=== PATIENT | female | born 1955 ===

== ENCOUNTER 2018-04-20 17:44 | Observation (INO) | payer MEDICARE, OTHER ==
--- NOTE | 2018-04-20 18:51 | ED ---
HPI Chest Pain - HPI Summary HPI Summary: This is [facility] documenting for attending Shashank Zuniga MD. Pt is a 62 y/o F c/o CP onset ~40 mins ago. Pain is described as pressure and rated a 1/10, per triage. Assoc Sx: SOB, lightheaded, dizzy, shaking, nausea. Pt was administered a Nitro and 3 ASA en route to ED which alleviated Sx. She reports she is feeling much better now. PMHx: HLD, denies DM, HTN. SHx: 1ppd for 40 years. - History of Current Complaint Chief Complaint: EDChestPainROMI Time Seen by Provider: 04/20/18 17:49 Hx Obtained From: Patient Onset/Duration: Started Minutes Ago - ~40 mins, Atraumatic, Resolved Timing: Constant Current Severity: Mild Pain Intensity: 1 Pain Scale Used: 0-10 Numeric Chest Pain Location: Mid Sternal Character: Pressure/Squeezing Alleviating Factor(s): Medication Associated Signs and Symptoms: Positive: Chest Pain, Shortness of Breath, Nausea , Other: - POS: lightheaded, dizzy, shaking. - Allergy/Home Medications Allergies/Adverse Reactions: Allergies Allergy/AdvReac Type Severity Reaction Status Date / Time Sulfa (Sulfonamide Allergy Hives Verified 04/20/18 17:59 Antibiotics) PMH/Surg Hx/FS Hx/Imm Hx Endocrine/Hematology History: Denies: Hx Diabetes Cardiovascular History: Denies: Hx Coronary Artery Disease, Hx Hypertension Infectious Disease History: No Infectious Disease History: Denies: Traveled Outside the [place] in Last 30 Days - Family History Known Family History: Positive: Cardiac Disease, Hypertension, Diabetes - Social History Occupation: Retired Lives: With Family Hx Tobacco Use: Yes Review of Systems Negative: Fever Positive: Chest Pain - pressure Positive: Shortness Of Breath Positive: Nausea Neurological: Other - POS: Light headed, dizzy All Other Systems Reviewed And Are Negative: Yes Physical Exam - Summary Physical Exam Summary: GENERAL: Patient is a well developed and nourished M who is lying comfortable in the stretcher. Patient is not in any acute respiratory distress. HEAD AND FACE: Normocephalic EYES: PERRLA, EOMI x 2. EARS: Hearing grossly intact. MOUTH: Oropharynx within normal limits. NECK: Supple, trachea is midline, no adenopathy, no JVD, no carotid bruit. CHEST: Symmetric, no tenderness at palpation LUNGS: Clear to auscultation bilaterally. No wheezing or crackles. CVS: Regular rate and rhythm, S1 and S2 present, no murmurs or gallops appreciated. ABDOMEN: Soft, non-tender. Bowel sounds are normal. No abdominal abnormal pulsations. EXTREMITIES: Full ROM in all major joints, no edema, no cyanosis or clubbing. NEURO: Alert and oriented x 3. No acute neurological deficits. Speech is normal and follows commands. SKIN: Dry and warm Triage Information Reviewed: Yes Vital Signs On Initial Exam: Initial Vitals Temp Pulse Resp BP Pulse Ox 97.4 F 65 17 105/54 95 04/20/18 17:57 04/20/18 17:57 04/20/18 17:57 04/20/18 17:57 04/20/18 17:57 Vital Signs Reviewed: Yes Diagnostics - Vital Signs Vital Signs Temp Pulse Resp BP Pulse Ox 04/20/18 18:00 65 17 95 04/20/18 17:57 97.4 F 65 18 105/54 94 - Laboratory Result Diagrams: 04/20/18 19:01 04/20/18 19:01 Lab Statement: Any lab studies that have been ordered have been reviewed, and results considered in the medical decision making process. - Radiology CXR Xray Interpretation: No Acute Changes - IMPRESSION: No radiographic evidence for acute cardiopulmonary abnormality on this portable chest x-ray. Radiology Interpretation Completed By: Radiologist - Report has been reviewed by provider. - EKG 1807 Cardiac Rate: NL - 61 bpm EKG Rhythm: Sinus Rhythm ST Segment: Non-Specific EKG Interpretation: Unspecified T-wave changes Chest Pain Course/Dx - Course Course Of Treatment: 62-year-old female who presents to the emergency room with chest pain. Patient reports that she was given nitroglycerin and aspirin by EMS which resolved her chest pain. Her workup including her first troponin is within normal limit. Patient will be admitted for ACS evaluation. Case discussed with hospitalist. Patient stable upon admission and remains chest pain-free at this time. - Diagnoses Provider Diagnoses: Chest pain Discharge - Sign-Out/Discharge Documenting (check all that apply): Patient Departure - Discharge Plan Condition: Stable Disposition: ADMITTED TO [facility] Referrals: Rg BLOCK,Kwaku Edmondson [Primary Care Provider] - - Billing Disposition and Condition Condition: STABLE Disposition: Admitted to [facility]
[2018-04-20 19:11] LABS: ABS Basophils 0.1 10^3/ul (0-0.2); ABS Eosinophils 0.2 10^3/ul (0-0.6); ABS Lymphocytes 2.3 10^3/ul (1.0-4.8); ABS Monocytes 0.6 10^3/ul (0-0.8); ABS Neutrophils 5.4 10^3/ul (1.5-7.7); ABS Nucleated RBC 0 10^3/ul; Eosinophil % 1.8 % (0-6); Hematocrit 43 % (35-47); Hemoglobin 14.7 g/dl (12.0-16.0); Lymphocyte % 26.9 % (25-47); Mean Corpuscular HGB Conc 35 g/dl (31-36); Mean Corpuscular Hemoglobin 31 pg (27-31); Mean Corpuscular Volume 90 fL (80-97); Mean Platelet Volume 7.7 um3 (7.4-10.4); Nucleated Red Blood Cells % 0; Platelet Count 225 10^3/ul (150-450); Red Blood Count 4.72 10^6/ul (4.00-5.40); Red Cell Distribution Width 15 % (10.5-15); White Blood Count 8.5 10^3/ul (3.5-10.8)
[2018-04-20 19:27] LABS: INR 1.01 (0.77-1.02)
[2018-04-20 19:31] LABS: EGFR Non-African American 64.5 (>60)
--- NOTE | 2018-04-20 19:48 | RAD ---
INDICATION: Chest pain COMPARISON: Chest x-ray dated March 03, 2007 TECHNIQUE: Single AP portable view of the chest was obtained. FINDINGS: Image quality is compromised due to the relative inferiority of a portable chest x-ray. The heart and mediastinum exhibit normal size and contour. There is mild calcification at the arch of the aorta. The lungs are grossly clear. There is no evidence of a large pleural effusion. Visualized bones are normal for the patient's age. IMPRESSION: No radiographic evidence for acute cardiopulmonary abnormality on this portable chest x-ray.
[2018-04-20] MEDS ORDERED: Acetaminophen TAB* 325 MG PO PRN (20:17)
[2018-04-20] MEDS ORDERED: Ondansetron INJ* 2 MG/ML VIAL IV PRN (20:17)
[2018-04-21] MEDS: Heparin VIAL(*) 5000 UNITS/ML VIAL (FIVE THOUSAND) SUBCUT SCH ×3 (01:22→14:44)
[2018-04-21] MEDS: Nicotine PATCH 21 MG/24 HR* PATCH TRANSDERM SCH ×2 (01:22→09:48)
--- NOTE | 2018-04-21 02:20 | HP ---
CC: BRANT Swanson * HISTORY AND PHYSICAL: DATE OF ADMISSION: 04/20/18 PRIMARY CARE PROVIDER: BRANT Swanson ATTENDING PHYSICIAN WHILE IN THE HOSPITAL: Bella Erickson MD * (report dictated by Jeff Banegas NP) CHIEF COMPLAINT: Chest pain. HISTORY OF PRESENT ILLNESS: Ms. Walsh is a 62-year-old female patient. She has a history of colon cancer. She also is a heavy smoker. She comes in today , she states she was sitting down watching her soap operas and she started feeling short of breath and feeling nauseated and had some chest pressure. The pressure was nonexertional, lasted about an hour. Her came and talked to her and they called 911. By the time she was fdc to the ambulance, she tripped, she responded to 2 nitro, was feeling better, the pain had gone away. She denied having any radiation to her neck or down her arm. She denies having becoming diaphoretic. There has been no recent surgeries, no recent leg swelling, no recent trips or travel and she has not had any recent cough, fevers , or chills. She states that she can walk up a flight of stairs, she does get short of breath, but she does not usually get chest pressure or heaviness. She was concerned because of the discomfort, her brought her in, she was evaluated in the ED. Because of this, and she has a significant family history , the fact that she is a heavy smoker, we were asked to evaluate for admission. PAST MEDICAL HISTORY: Significant for: 1. Colon cancer. 2. Tobacco abuse. PAST SURGICAL HISTORY: The patient had a colon resection. She had a heart catheterization 10 years ago. MEDICATIONS: Home meds were denied by the patient. ALLERGIES TO MEDICATIONS: Include SULFA DRUGS. FAMILY HISTORY: Mother had a history of CVA. Father had a history of an GA at 51. Brother had an GA in his 50s and her sister had an GA when she was in her 60s. SOCIAL HISTORY: The patient is a pack a day smoker for x40 years. She rarely drinks alcohol. Surrogate decision maker is her . REVIEW OF SYSTEMS: There is no documented fever. She denies having any significant weight change. There is no double vision. There is no ear discharge. There was no rhinorrhea. No sore throat. No thyroid enlargement. She did admit to chest pressure from [facility]. There was no abdominal pain. There was associated nausea with this chest discomfort that is now resolved. No vomiting. No abdominal pain. No dysuria. No frequency. No seizure. No loss of conscious. No pruritus and no skin ulcerations. Review of 14 systems was completed, all others negative. PHYSICAL EXAMINATION GENERAL: At this time, Ms. Walsh is a 62-year-old female patient. She is sitting in the ED stretcher; she does not appear to be in any acute distress. VITAL SIGNS: Blood pressure 113/70, pulse is 65, respirations of 18, O2 sat was desaturation at 95% on room air. HEENT: Head: Atraumatic, normocephalic. Eyes: EOMs intact. Sclerae anicteric and not pale. Throat: Oral mucosa appears to be moist. No oropharyngeal erythema. NECK: Supple. LUNGS: Clear to auscultation bilaterally. No wheezes, rales, or rhonchi. HEART: Sounds S1, S2. Regular rate and rhythm. No murmurs, rubs, or gallops. ABDOMEN: Soft. It was flat, nontender. Bowel sounds were present. EXTREMITIES: Pulses were 2+ throughout and she is able to move all 4 extremities with 5/5 strength. NEUROLOGICAL: The patient is awake. She is alert. She is oriented x3. Her speech is clear. Tongue is midline. Steak Tenderizer Machine were equal. No gross focal deficits. SKIN: Intact. DIAGNOSTIC STUDIES/LAB DATA: Labs, WBC 8.5, RBC 4.72, hemoglobin 14.7, hematocrit of 43, platelet count 25. The INR was 1.01. PTT is 31.9. Sodium was 140, potassium was 3.8, chloride of 105, bicarb 26, BUN 14, creatinine of 0.89, glucose 85, lactate 0.7, calcium 9.4, total bili is 0.8, AST 14, ALT _, alk phos 52, troponin 0.00, BNP 59, albumin of 4.1. She did have a chest x-ray obtained today, impression: No radiographic evidence for acute cardiopulmonary disease. She had an EKG obtained today at 1800, which shows a normal sinus rhythm. She did have inversions in aVL and aVR. She did have J-point elevation at V2. There is upsloping ST segment in lead II, III, and aVF. Repeat EKG, those changes are similar. She still have the inverted T wave in the aVR and aVL and J-point elevation in V2, it appears to be similar. Old medical records were reviewed. ASSESSMENT AND PLAN: Ms. Walsh is a 62-year-old female patient coming into the ED today with complaints of chest discomfort. She will be admitted under observation status for: 1. Chest pain. The patient has significant risk factors for acute coronary artery syndrome. My plan would be to go ahead and continue with baby aspirin, serial EKGs. I am going to get an EKG in the morning, 2 more troponins. I will get a stress test in the morning. Chemical stress test. I have offered smoking cessation for the patient and we will continue to follow. 2. Colon cancer. Follow with her PCP. 3. Tobacco abuse. I have ordered nicotine patch. I have offered smoking cessation and counseling. 4. DVT prophylaxis: Heparin subcu has been ordered. 5. Code status: Full code. 6. Fluids, electrolytes, and nutrition: She can have a heart healthy diet and then she will be n.p.o. after midnight. TIME SPENT: Time spent on admission, 50 minutes, greater than half the time was spent [id number] with the patient obtaining my history and physical, other half of the time was spent going over the plan of care with the patient and implementing the plan of care. I did discuss the plan of care with my attending, Dr. Erickson, she is in agreement. JEFF BANEGAS, BHAVIK [id number]/[facility] #: [id number] SHERON
[2018-04-21 06:31] LABS: ABS Basophils 0.1 10^3/ul (0-0.2); ABS Eosinophils 0.3 10^3/ul (0-0.6); ABS Lymphocytes 2.8 10^3/ul (1.0-4.8); ABS Monocytes 0.6 10^3/ul (0-0.8); ABS Neutrophils 3.6 10^3/ul (1.5-7.7); ABS Nucleated RBC 0 10^3/ul; Eosinophil % 4.1 % (0-6); Hematocrit 41 % (35-47); Hemoglobin 14.1 g/dl (12.0-16.0); Lymphocyte % 37.7 % (25-47); Mean Corpuscular HGB Conc 34 g/dl (31-36); Mean Corpuscular Hemoglobin 31 pg (27-31); Mean Corpuscular Volume 91 fL (80-97); Nucleated Red Blood Cells % 0.2; Platelet Count 220 10^3/ul (150-450); Red Blood Count 4.56 10^6/ul (4.00-5.40); Red Cell Distribution Width 15 % (10.5-15); White Blood Count 7.3 10^3/ul (3.5-10.8)
[2018-04-21 06:35] LABS: INR 0.94 (0.77-1.02)
[2018-04-21 06:55] LABS: EGFR Non-African American 69.9 (>60)
[2018-04-21 08:42] VITALS: BP 115/51
[2018-04-21] MEDS ORDERED: Aspirin 81 mg CHEW TAB* 81 MG TAB.CHEW PO SCH (09:00)
[2018-04-21] MEDS ORDERED: Regadenoson* 0.4 MG/5 ML SYRINGE ONE (11:51)
--- NOTE | 2018-04-21 12:41 | RAD ---
HISTORY: chest pain COMPARISONS: None TECHNIQUE: A 1 day stress/rest myocardial perfusion study was performed, with pharmacologic stress. The stress portion was monitored by Dr. Horta. Gated SPECT imaging was performed, with CT-based attenuation correction DOSE: Stress: Technetium 99m tetrofosmin, 25.99 millicuries, injected at 11:25 AM on April 21, 2018 Rest: Technetium 99m tetrofosmin, 10.2 millicuries, injected at 6:50 AM on April 21, 2018 Pharmacologic agent: Lexiscan FINDINGS: CARDIAC MONITORING: EKG criteria ischemia with stress. EF: 85% TID: 0.99 MOTION: Normal motion, with normal wall thickening. PERFUSION: There are no fixed or reversible perfusion defects. OTHER: None IMPRESSION: NO FIXED OR REVERSIBLE PERFUSION DEFECTS ASSESSMENT: LOW RISK. Based on imaging criteria from ACC/AHA 2002. Guideline Update for the Management of Patient's with Chronic Stable Angina, table 23. Noninvasive Risk Stratification.
[2018-04-21] MEDS ORDERED: Nicotine Patch Removal NOTE PATCH OFF SCH (21:00)
--- NOTE | 2018-04-22 03:50 | DS ---
CC: BRANT Swanson * DISCHARGE SUMMARY: DATE OF ADMISSION: 04/20/18 DATE OF DISCHARGE: 04/21/18 PRIMARY CARE PROVIDER: BRANT Swanson MY ATTENDING PHYSICIAN WHILE IN THE HOSPITAL: Dr. Molina * (report dictated by Jeff Banegas NP) DISCHARGE DIAGNOSES: Include: 1. Hyperlipidemia. 2. Chest pain. SECONDARY DIAGNOSES: Include: 1. Tobacco abuse. 2. Anxiety. DISCHARGE MEDICATIONS: Includes new medication: 1. Lipitor 10 mg p.o. daily. STATUS DURING HOSPITALIZATION: Observation. HISTORY OF PRESENT ILLNESS AND HOSPITAL COURSE: I refer you to my H and P dictated yesterday. In short, Ms. Walsh is a 62-year-old female that came into the ED with complaints of chest discomfort with significant risk factors. She is a smoker continuing to smoke and she does have a family history and came in with chest discomfort that was concerning for possible acute coronary artery disease. She was brought in, she was ruled out with 3 negative troponins. She has serial EKGs, which were negative. She had a negative D-dimer. Lipid panel was checked and her LDL was 158, her A1c was 5.6. She underwent a stress testing today and she had done well with this. She had no more episodes of chest pain and certainly she could be safely discharged. She does have a ASCVD risk score of 7.1%, so it was felt that at this point she should go on a statin. In addition to this, lifestyle modifications for hyperlipidemia and close followup with primary. Because of this, I am starting her on 10 mg of Lipitor a day. I did discuss the side effects of this medication since she is willing to take them. I also discussed with her the importance of smoking cessation. I offered counseling and explained to her the importance of quitting. She again was instructed to follow up with her primary. She remained stable during the hospitalization and she is going to be discharged. PHYSICAL EXAMINATION ON DISCHARGE: Blood pressure 115/51, pulse 57, respirations 16, O2 sat 96%, temperature 98.1. General: At this time, Ms. Walsh is a 62-year- old female patient. She appears to be well-nourished, well- developed. HEENT: Head is atraumatic, normocephalic. Eyes: EOMs intact. Sclerae are anicteric, not pale. Neck: Supple. Throat: Oral mucosa appears to be dry. No oropharyngeal erythema. Heart sounds S1, S2, regular rate and rhythm. No murmurs, rubs, or gallops. Lungs: Clear to auscultation bilaterally. No wheezes, rales, or rhonchi. Abdomen: Soft, flat, nontender. Bowel sounds are present. Extremities: Pulses are 2+ throughout. She had no peripheral edema. Neurologically, she is awake, alert, and oriented x3. Skin: Grossly intact. LABORATORY DATA/DIAGNOSTIC STUDIES: Labs on discharge, WBC 7.3, RBC of 4.56, hemoglobin of 14.1, hematocrit of 41, platelet count of 220. The INR was 0.94. Sodium 141, potassium of 4, chloride 108, bicarb 26, BUN 20, creatinine of 0.83 , glucose of 79. A1c 5.6. Serial troponins were 0. Her LDL was 158, cholesterol 217, HDL 47. She had a stress test done today, which showed no fixed or reversible perfusion defects. She had an EKG obtained today, which showed there is artifact , but it does show normal sinus rhythm, poor R wave progression, no significant change from previous EKG, there was sinus rhythm at rate of 60. She had a chest x-ray in the emergency department prior to admission, which showed no radiographic evidence for acute cardiopulmonary abnormality. STATUS DURING HOSPITALIZATION: Observation. This is a complex medical case. I refer you to medical chart for further details. ISSUES TO RETURN: Include, but were not limited to chest pain, shortness of breath, fevers, chills, nausea, vomiting, or any worrisome symptoms. ISSUES TO BE FOLLOWED UP AT DISCHARGE: 1. Tobacco abuse. She is to follow up with her primary care provider about smoking cessation and counseling. 2. Hyperlipidemia. I have encouraged her to follow a heart-healthy, low-fat, low- cholesterol diet and to continue with lifestyle modifications and also to start the statin and she needs to follow with her primary for this. Her LFTs here were stable, the AST was 14, ALT was 8 and her alk phos 52, these will need to be followed, now I am starting a statin. 3. She is to follow up with Raymundo Ann in 4 to 7 days. TIME SPENT: Time spent on the discharge was 35 minutes, greater than half of the time was spent [id number] with the patient going over the discharge plan, the other half time spent in implementing discharge plan. I did discuss discharge plan with my attending, Dr. Molina, he is in agreement. JEFF BANEGAS NP [id number]/[facility] #: [id number] [place]ER[place]
== END 2018-04-21 14:32 | disposition home or self-care (01) ==
LOC: ED 17:44 → MEDTELE 20:14
PROVIDERS: ADMIT Pediatrics; ATTEND Internal Medicine
DX: R07.9 Chest pain, unspecified (principal); C18.9 Malignant neoplasm of colon, unspecified; F17.210 Nicotine dependence, cigarettes, uncomplicated; R11.0 Nausea
CPT/HCPCS: 36415; 71045; 78452; 80048; 80053; 80061; 83036; 83605; 83880; 84484; 85025; 85379; 85610; 85730; 93005; 93017; 96374; 96375; 99284; 99406; A9270-GY; A9502; G0378; J1644; J2785